=== PATIENT | female | born 1950 | race Hispanic/Latino ===

== ENCOUNTER → 2019-09-10 | Outpatient (CLI) | payer OTHER | END | disposition home or self-care (01) | LOC: OIH 13:53 | PROVIDERS: ATTEND Internal Medicine | DX: M06.4 Inflammatory polyarthropathy (principal) | CPT/HCPCS: 73120; 73620 ==

== ENCOUNTER 2025-08-05 06:24 | Observation (INO) | payer OTHER ==
[2025-08-03 10:50] LABS: IMMATURE GRANULOCYTE ABSOLUTE 0.02 K/uL (0-1); NUCLEATED RED BLOOD CELLS 0.0 % (0.0-0.19); PLATELET COUNT (AUTO) 209 K/uL (130-400); RED BLOOD CELL COUNT(AUTO) 3.65 MIL/uL (4.00-5.50); RED CELL DISTRIBUTION WIDTH 12.6 % (11.0-15.5); WHITE BLOOD COUNT (AUTO) 5.8 K/uL (4.8-10.8)
[2025-08-03 10:52] LABS: APPEARANCE,URINE CLEAR (CLEAR); GLUCOSE, URINE (UA) NEGATIVE (NEGATIVE); LEUKOCYTE ESTERASE ,URINE 75 Leu/uL (NEGATIVE); NITRATE,URINE NEGATIVE (NEGATIVE); OCCULT BLOOD,URINE NEGATIVE (NEGATIVE)
[2025-08-03 10:53] LABS: ADD UA MICROSCOPIC YES
[2025-08-03 10:54] LABS: SQUAMOUS EPITHELIAL CELL,UR RARE /HPF (0-2)
[2025-08-03 10:58] LABS: CREATININE 0.7 mg/dL (0.5-1.0); GLOMERULAR FILTR. RATE CALC 90.0 mL/min (>90); GLUCOSE,RANDOM 97.0 mg/dL (70-105); SODIUM SERUM 136.0 mmol/L (136-145); UREA NITROGEN, BLOOD 25.0 mg/dL (7-18)
[2025-08-03 10:59] LABS: INR 1.03 (0.85-1.15)
[2025-08-03 11:09] VITALS: BP 152/74; PULSE 66; RESP 13; TEMP 97.5
--- NOTE | 2025-08-03 11:10 | NUR ---
IS INITIAL DONE BY TOYA COLORADO
--- NOTE | 2025-08-04 10:12 | NUR ---
RE: LABS REPORTED UA/URINE CX TO DR RAMIREZ. NO NEW ORDERS RECEIVED.
[2025-08-05] VITALS (23 sets, daily range): BP systolic 150–197; BP diastolic 59–89; PULSE 65–76; RESP 15–18; TEMP 96.8–97.8; O2SAT 94
[~2025-08-05] VITALS: Ht 154.9 cm; Wt 83.5 kg
[~2025-08-05 06:24] MED LIST: ALBU1.252 IH; ATOR10TA69 PO; AZEL137S11 NS; BUDE10.2 IH; CHLO25TA3 PO; DOXA8TAB81 PO; ERGO500093 PO; LABE300T4 PO; LEVO75CA6 PO; LIFI1DRO5 OP; LOSA100T59 PO; MONT-39 PO; OMEP20CA12 PO; PRIM50TA23 PO
[2025-08-05] MEDS ORDERED: LIDOCAINE PF 100MG/5ML (2%) SYRINGE 5ML ONE (07:07)
[2025-08-05] MEDS ORDERED: MIDAZOLAM HCL 1 MG/ML 2ML VIAL ONE (07:09)
[2025-08-05] MEDS ORDERED: SUCCINYLCHOLINE CHLORIDE 20 MG/ML 10 ML VIAL ONE (07:17)
[2025-08-05] MEDS ORDERED: VANCOMYCIN 500MG+NS 100ML 100 ML IV ONE (07:27)
[2025-08-05] MEDS: SUGAMMADEX SODIUM 200 MG/2 ML VIAL IV ONE (07:40)
[2025-08-05] MEDS: TRANEXAMIC ACID 1000MG/10ML ONE ×2 (08:43→11:37)
[2025-08-05] MEDS: LACTATED RINGERS 1000ML 1,000 ML IV ONE (09:13)
--- NOTE | 2025-08-05 10:49 | OP ---
Operative Note: DATE OF PROCEDURE: 08/05/25 SURGEON: BLAKE RAMIREZ MD OUTPATIENT PSYCHIATRIST: [Jessica Yousif CFA] ANESTHESIA: [General anesthesia plus regional block] ANESTHESIOLOGIST/LOT WORKER: [Margaret Frye CRNA] PREOPERATIVE DIAGNOSIS: [Right knee osteoarthritis] POSTOPERATIVE DIAGNOSIS: [Right knee osteoarthritis] IMPLANTS: [BIOMET [employer]. Femur 62.5 right PS. Tibia 67 fixed cruciate. Tibial liner 16 x 63/67 PS. Patella 31X 8, asymmetric] PROCEDURE: [Right total knee arthroplasty] ESTIMATED BLOOD LOSS: [100 ML] INDICATIONS: [The patient is a 74-year-old female with a history of pain to the right knee secondary to severe arthritis. The patient was admitted to have a total knee arthroplasty after failing conservative treatment. The procedure was understood by the patient, risks, benefits and possible complications and agreed signed the consent form.] DESCRIPTION OF PROCEDURE: [After adequate general anesthesia was achieved and regional block obtained the right lower extremity was prepped and draped in the usual manner previous placement of the tourniquet in the proximal thigh. The extremity was then elevated and exsanguinated with an Esmarch bandage and the tourniquet inflated to 300 mmHg the Esmarch band been then removed. With the knee in flexion a longitudinal incision was then made in the anterior aspect through the skin followed by dissection of the subcutaneous tissue. A bone infusion needle was then inserted just medial to the tibial tuberosity and through this needle we injected into the bone a solution of normal saline 50 mL mixed with 500 mg of vancomycin. The needle was removed. A paramedian approach was then made with the Bovie cautery cutting through the quadriceps tendon, medial patellar retinaculum and patellar tendon retinaculum. The retropatellar tendon fat was then excised and the soft tissue elements of the tibia were eleva kandis subperiosteally and retractors were applied medially and laterally . The anterior and posterior cruciate ligaments were resected. With the use of a drill a starting hole was made in the distal femur entering the intramedullary canal and then after removal of the drill an intramedullary guide was inserted with a 5 degree valgus block that touched the distal femur and to this the distal femoral cutting guide was then applied anteriorly and was secured to the distal femur with the use of pins. The intramedullary guide was then removed and with the use of the oscillating saw we proceeded to resect the distal femur removing the fragments and the guide. The femoral sizer was then applied distally and drill holes were made removing the sizer and the 4-in-1 cutting block was then inserted and the anterior, posterior and chamfer cuts were made removing the fragments and the block. The PS cutting guide was then inserted and the intercondylar cut was made removing the fragment and the guide. The posterior cruciate ligament retractor was then inserted posterior to the tibia and this was brought forward proceeding then to apply the external tibial alignment guide and secured the proximal cutting guide to the tibia with the use of pins. With the use of the oscillating saw the proximal cut to the tibia tibia was made. The bone fragment was removed and the trial tibia plate was chosen. At this point the menisci were removed sharply and with the use of the curved osteotome the posterior osteophytes of the femur were removed. The trial components were then inserted at the femur and tibia with a trial tibial liner bringing the knee into extension noticing that the patient had a very stable knee in flexion, extension and with valgus and varus stress. The knee was main tained in extension and the patella was then addressed proceeding to measure its thickness and then with the use of the oscillating saw we removed eight mm from the articular surface and restored the height with application of a trial component after 3 peg holes were made. The patellofemoral ligament was removed and then the patellofemoral tracking was checked noticing to be tracking laterally and for this reason a lateral retinacular release was performed correcting the tracking back to normal. At this moment all the components were removed, the tibia after the metaphyseal defect was created and while cement was being mixed on the back table we proceeded to irrigate the joint with antibiotic solution and then cover the entry to the femoral canal with a bone plug. Once the cement was ready we proceeded to apply it first to the tibia surface inserting the final component and then to the femoral surface and inserted the final component removing the excess cement and then applying a trial liner bringing the knee into extension for compression. Then we proceeded to irrigate the patella surface and dried it applying then bone cement and the final patellar component was inserted and was secured with application of a clamp. The joint was irrigated with a warm diluted Betadine solution while the cement dried followed by irrigation with antibiotic solution. The trial liner was removed as well as the patellar clamp and we proceeded then to irrigate the posterior aspect of the joint to remove all the remaining debris and the final tibial liner was inserted and locked against the tibia. The range of motion was checked and noticed to be adequate with full extension and flexion, no laxity in valgus or varus stress and with adequate patellofemoral tracking. The patient had no anterior or posterior drawer. The tourniquet was then deflated and this was followed by hemostasis and the wound was then closed with approximation of the quadriceps tendon, patellar retinaculum and patellar tendon retinaculum with #1 Vicryl close stitches alternating with #1 Ethibond stitches, and closure of the subcutaneous tissue with 2-0 Monocryl inverted stitches and the skin was closed with 3-0 Monocryl subcuticularly. The wound was covered with a suction dressing followed by application of an Martínez bandage for compression and the drapes were then removed transferring the patient to the hospital bed and taken to recovery room for follow-up by anesthesia. There were no complications during the procedure.] BLAKE RAMIREZ MD Aug 05, 2025 10:49
[2025-08-05] MEDS ORDERED: PoTASSium chl 10% ELIXIR 20MEQ 20 MEQ/15 ML UDCUP PO PRN (11:00)
[2025-08-05] MEDS: 0.9%NACL 1000ML 1,000 ML IV SCH (11:00)
[2025-08-05] MEDS ORDERED: FERROUS FUMARATE 324 MG TABLET PO PRN (11:00)
--- NOTE | 2025-08-05 12:07 | NUR ---
PATIENT ARRIVED TO UNIT VIA BED Assessment completed as charted
[2025-08-05] MEDS ORDERED: ALBUTEROL 0.042% 1.25MG/3ML IH SCH (12:30)
[2025-08-05] MEDS ORDERED: AZELASTINE HCL 137 MCG NS SCH (12:30)
--- NOTE | 2025-08-05 18:30 | NUR ---
ORTHO COORDINATOR: TEACHING REGARDING DVT AND PNEUMONIA PREVENTION, PAIN EXPECTATIONS AND PAIN MANAGEMENT. PATIENT IN BED. FAMILY AT BEDSIDE. ICE PACK TO RIGHT KNEE. CARMEN SYSTEM REVIEWED. INSTRUCTED PATIENT SYSTEM SHOULD BE REMOVED 7 DAYS FROM THE DATE OF SURGERY BY HOME HEALTH. CARMEN SYSTEM FUNCTIONING, GREEN LIGHT FLASHING. B SCD SLEEVES IN PLACE AND FUNCTIONING. INCENTIVE SPIROMETER ON BEDSIDE TRAY. PATIENT VERBALIZED PROPER FREQUENCY OF USE FOR INCENTIVE SPIROMETER. PATIENT RETURN DEMONSTRATED FOOT FLEXION AND EXTENSION EXERCISES, RATIONALE FOR BOTH PROVIDED. PATIENT PAIN MANAGEMENT STRATEGY REVIEWED. PATIENT ENCOURAGED TO SET AN ALARM AND PERFORM SELF PAIN ASSESSMENTS EVERY FOUR HOURS AT THE MINIMUM. PATIENT INSTRUCTED PAIN MEDICATION MUST BE REQUESTED, NUMERIC PAIN SCALE REVIEWED. PATIENT INTENDS TO DISCHARGE HOME WITH HOME HEALTH PHYSICAL THERAPY. ENCOURAGED PATIENT TO CONTINUE PREMEDICATING PRIOR TO PHYSICAL THERAPY AND PERIODS OF HIGH ACTIVITY, TO CONTINUE USE OF INCENTIVE SPIROMETER UNTIL PRESURGERY ACTIVITY LEVEL REACHED, TO CONTINUE FOOT FLEXION AND EXTENSION EXERCISES, TO INCREASE AMBULATION AND MAINTAIN HYDRATION. SET EXPECTATIONS FOR PATIENT TO SHOWER TOMORROW, RATIONALE PROVIDED. PATIENT VERBALIZED UNDERSTANDING TO ALL INSTRUCTIONS. NO ADDITIONAL QUESTIONS AT THIS TIME.
[2025-08-05] MEDS: PoTASSium chloRIDE 20MEQ ER 20 MEQ ERTAB PO PRN (18:45)
[2025-08-05] MEDS: DOXAZOSIN MESYLATE 2 MG TABLET PO SCH (19:51)
[2025-08-05] MEDS: ASPIRIN 81 MG EC TAB PO SCH (19:51)
[2025-08-05] MEDS: PRIMIDONE 50 MG TAB PO SCH (21:00)
[2025-08-05] MEDS: SYMBICORT 160-4.5 MCG INHALER IH SCH (21:00)
[2025-08-06] VITALS (8 sets, daily range): BP systolic 106–143; BP diastolic 46–66; PULSE 67–74; RESP 16–18; TEMP 97.7–97.9; O2SAT 96–97
--- NOTE | 2025-08-06 04:35 | NUR ---
report received patient, patient awake, alert, ox3, no sob, no c/o pain at this time, ble scds in place, right knee with demetris dressing with negative pressure, teach patient plan of care, pain management and expected outcome, patient verbalizes understanding via teach back
[2025-08-06 04:55] LABS: NUCLEATED RED BLOOD CELLS 0.0 % (0.0-0.19); PLATELET COUNT (AUTO) 183.0 K/uL (130-400); RED BLOOD CELL COUNT(AUTO) 3.28 MIL/uL (4.00-5.50); RED CELL DISTRIBUTION WIDTH 12.3 % (11.0-15.5); WHITE BLOOD COUNT (AUTO) 7.3 K/uL (4.8-10.8)
[2025-08-06 05:17] LABS: CREATININE 0.7 mg/dL (0.5-1.0); GLOMERULAR FILTR. RATE CALC 90.0 mL/min (>90); GLUCOSE,RANDOM 101.0 mg/dL (70-105); SODIUM SERUM 135.0 mmol/L (136-145); UREA NITROGEN, BLOOD 17.0 mg/dL (7-18)
[2025-08-06] MEDS: CALCIUM CARB 500MG PO PRN (08:03)
[2025-08-06] MEDS: (Chlorthalidone 25 MG) PO SCH (08:14)
[2025-08-06] MEDS: LIFITEGRAST OP SCH (08:14)
--- NOTE | 2025-08-06 11:53 | PN ---
Postop day 1. Vital signs stable, afebrile. Laboratory reviewed. Adequate pain control. Did well with physical therapy and rehabilitation this morning. Awake, alert and oriented. In no respiratory distress. The dressing in the knees clean and dry with no signs of bleeding. There is mild edema. Calf is soft and nontender. Distal neurovascular intact. Assessment: Status post right total knee arthroplasty. Plan: Patient wishes to go home but discharge planning has been completed and likely will not happen until Friday. Continue with physical therapy and rehabilitation and pain control Vitals/Labs Vital Signs Date Time Temp Pulse Resp B/P (MAP) Pulse Ox O2 Delivery O2 Flow Rate FiO2 08/06/25 09:00 97.7 74 18 110/46 96 Room Air 21 08/06/25 08:00 0 Laboratory Tests 08/06/25 04:34 Medications Current Medications Cefazolin Sodium 2 gm STK-MED ONCE .ROUTE Last administered on 08/05/25at 08:39; Start 08/05/25 at 06:40; Stop 08/05/25 at 06:40; Status DC Lactated Ringer's 1,000 ml @ As Directed STK-MED ONCE IV Last administered on 08/05/25at 09:13; Start 08/05/25 at 06:40; Stop 08/05/25 at 06:40; Status DC Lidocaine HCl 100 mg STK-MED ONCE .ROUTE; Start 08/05/25 at 07:07; Stop 08/05/25 at 07:07; Status DC Ondansetron HCl 4 mg STK-MED ONCE .ROUTE; Start 08/05/25 at 07:07; Stop 08/05/25 at 07:07; Status DC Dexamethasone Sodium Phosphate 10 mg STK-MED ONCE .ROUTE; Start 08/05/25 at 07:07; Stop 08/05/25 at 07:08; Status DC Ketamine HCl 50 mg STK-MED ONCE .ROUTE; Start 08/05/25 at 07:08; Stop 08/05/25 at 07:08; Status DC Ephedrine Sulfate 50 mg STK-MED ONCE .ROUTE; Start 08/05/25 at 07:08; Stop 08/05/25 at 07:08; Status DC Propofol 200 mg STK-MED ONCE IV; Start 08/05/25 at 07:08; Stop 08/05/25 at 07:08; Status DC Phenylephrine HCl 10 mg STK-MED ONCE IV; Start 08/05/25 at 07:08; Stop 08/05/25 at 07:09; Status DC Midazolam HCl 2 mg STK-MED ONCE .ROUTE; Start 08/05/25 at 07:09; Stop 08/05/25 at 07:09; Status DC Fentanyl Citrate 100 mcg STK-MED ONCE .ROUTE; Start 08/05/25 at 07:09; Stop 08/05/25 at 07:09; Status DC Rocuronium Daphne 50 mg STK-MED ONCE .ROUTE; Start 08/05/25 at 07:14; Stop 08/05/25 at 07:15; Status DC Ropivacaine 150 mg STK-MED ONCE .ROUTE; Start 08/05/25 at 07:14; Stop 08/05/25 at 07:15; Status DC Succinylcholine Chloride 200 mg STK-MED ONCE .ROUTE; Start 08/05/25 at 07:17; Stop 08/05/25 at 07:17; Status DC Tranexamic Acid 1,000 mg STK-MED ONCE .ROUTE Last administered on 08/05/25at 08:43; Start 08/05/25 at 07:26; Stop 08/05/25 at 07:27; Status DC Cefazolin Sodium 1 gm STK-MED ONCE .ROUTE; Start 08/05/25 at 07:27; Stop 08/05/25 at 07:27; Status DC Vancomycin HCl 100 ml @ As Directed STK-MED ONCE IV; Start 08/05/25 at 07:27; Stop 08/05/25 at 07:27; Status DC Hydromorphone HCl 1 mg STK-MED ONCE .ROUTE; Start 08/05/25 at 07:40; Stop 08/05/25 at 07:41; Status DC Acetaminophen 100 ml @ As Directed STK-MED ONCE .ROUTE; Start 08/05/25 at 07:41; Stop 08/05/25 at 07:41; Status DC Cefazolin Sodium 3 gm STK-MED ONCE IRRIG; Start 08/05/25 at 00:00; Stop 08/05/25 at 00:01; Status Cancel Vancomycin HCl 500 mg STK-MED ONCE IJ; Start 08/05/25 at 00:00; Stop 08/05/25 at 00:01; Status Cancel Fentanyl Citrate 100 mcg STK-MED ONCE .ROUTE; Start 08/05/25 at 09:00; Stop 08/05/25 at 09:00; Status DC Cefazolin Sodium 3 gm STK-MED ONCE IRRIG Last administered on 08/05/25at 09:17; Start 08/05/25 at 09:17; Stop 08/05/25 at 09:26; Status DC Vancomycin HCl 500 mg STK-MED ONCE IJ Last administered on 08/05/25at 08:59; Start 08/05/25 at 08:59; Stop 08/05/25 at 09:26; Status DC Sodium Chloride 1,000 ml @ 100 mls/hr Q10H IV; Start 08/05/25 at 11:00; Stop 08/06/25 at 10:59; Status DC Polyethylene Glycol 17 gm DAILY PO Last administered on 08/06/25at 08:05; Start 08/06/25 at 09:00; Stop 09/05/25 at 08:59 Bisacodyl 10 mg DAILY PRN RC; Start 08/08/25 at 11:00; Stop 09/07/25 at 10:59 Ketorolac Tromethamine 15 mg Q6H PRN IV Last administered on 08/05/25at 12:37; Start 08/05/25 at 11:00; Stop 08/10/25 at 10:59 Ferrous Fumarate 324 mg DAILY PRN PO; Start 08/05/25 at 11:00; Stop 09/04/25 at 10:59 Ondansetron HCl 4 mg Q6H PRN IVP; Start 08/05/25 at 11:00; Stop 09/04/25 at 10:59 Calcium Carbonate 500 mg Q12H PRN PO Last administered on 08/06/25at 08:03; Start 08/05/25 at 11:00; Stop 09/04/25 at 10:59 Diphenhydramine HCl 25 mg Q6H PRN IVP; Start 08/05/25 at 11:00; Stop 09/04/25 at 10:59 Cefazolin Sodium 2 gm Q8H IVPB Last administered on 08/06/25at 00:04; Start 08/05/25 at 16:00; Stop 08/06/25 at 00:01; Status DC Potassium Chloride 100 ml @ 100 mls/hr AD PRN IV; Start 08/05/25 at 11:00; Stop 09/04/25 at 10:59 Potassium Chloride 20 meq AD PRN PO; Start 08/05/25 at 11:00; Stop 09/04/25 at 10:59 Potassium Chloride 20 meq AD PRN PO Last administered on 08/06/25at 08:04; Start 08/05/25 at 11:00; Stop 09/04/25 at 10:59 Oxycodone HCl 5 mg Q4H PRN PO Last administered on 08/05/25at 22:15; Start 08/05/25 at 11:00; Stop 08/12/25 at 10:59 Oxycodone HCl 10 mg Q4H PRN PO Last administered on 08/06/25at 08:06; Start 08/05/25 at 11:00; Stop 08/12/25 at 10:59 Tramadol HCl 50 mg Q6H PRN PO Last administered on 08/06/25at 10:10; Start 08/05/25 at 11:00; Stop 08/10/25 at 10:59 Acetaminophen 1,000 mg Q8H PO Last administered on 08/06/25at 11:06; Start 08/05/25 at 11:00; Stop 09/04/25 at 10:59 Aspirin 81 mg BID PO Last administered on 08/06/25at 08:02; Start 08/05/25 at 21:00; Stop 09/04/25 at 20:59 Tranexamic Acid 1,000 mg STK-MED ONCE .ROUTE Last administered on 08/05/25at 11:37; Start 08/05/25 at 11:22; Stop 08/05/25 at 11:22; Status DC Fentanyl Citrate 100 mcg STK-MED ONCE .ROUTE Last administered on 08/05/25at 11:39; Start 08/05/25 at 11:37; Stop 08/05/25 at 11:37; Status DC Albuterol Sulfate 1.25 mg AD IH; Start 08/05/25 at 12:30; Stop 08/05/25 at 12:52; Status DC Atorvastatin Calcium 10 mg PM PO Last administered on 08/05/25at 21:00; Start 08/05/25 at 21:00; Stop 09/04/25 at 20:59 Home Med SYMBICORT 160-4.5 MCG INHALER PM IH Last administered on 08/05/25at 21:00; Start 08/05/25 at 21:00; Stop 09/04/25 at 20:59 Losartan Potassium 100 mg NOON PO Last administered on 08/06/25at 11:06; Start 08/06/25 at 12:00; Stop 09/05/25 at 11:59 Montelukast Sodium 10 mg PM PO Last administered on 08/05/25at 21:00; Start 08/05/25 at 21:00; Stop 09/04/25 at 20:59 Primidone 50 mg PM PO Last administered on 08/05/25at 21:00; Start 08/05/25 at 21:00; Stop 09/04/25 at 20:59 Miscellaneous Medication 137 mcg AD NS; Start 08/05/25 at 12:30; Stop 08/05/25 at 12:52; Status DC Home Med (Chlorthalidone 25 MG) AM PO; Start 08/06/25 at 09:00; Stop 09/05/25 at 08:59 Doxazosin Mesylate 8 mg BID PO Last administered on 08/06/25at 08:05; Start 08/05/25 at 21:00; Stop 09/04/25 at 20:59 Labetalol HCl 200 mg BID PO Last administered on 08/06/25at 08:03; Start 08/05/25 at 21:00; Stop 09/04/25 at 20:59 Levothyroxine Sodium 75 mcg SYN PO Last administered on 08/06/25at 06:16; Start 08/06/25 at 06:30; Stop 09/05/25 at 06:29 Home Med (Lifitegrast (Xiidra) 1 EACH) AM OP Last administered on 08/06/25at 08:14; Start 08/06/25 at 09:00; Stop 09/05/25 at 08:59 Pantoprazole Sodium 40 mg DAILY PO Last administered on 08/06/25at 08:05; Start 08/06/25 at 09:00; Stop 09/05/25 at 08:59 Labetalol HCl 100 mg BID PO Last administered on 08/06/25at 08:03; Start 08/05/25 at 21:00; Stop 09/04/25 at 20:59 BLAKE RAMIREZ MD Aug 06, 2025 11:53
--- NOTE | 2025-08-06 16:20 | NUR ---
[facility] CM MET WITH PT AND SISTER IN ROOM, INITIAL ASSESSMENT DONE. PATIENT IS INDEPENDENT PRIOR TO SURGERY, LIVES AT HOME WITH HER . AT HOME PATIENT VERBALIZED SHE HAS A ROLLATOR WALKER, CPAP, NEBULIZER MACHINE, BPM. DENIES ANY OTHER EQUIPMENT/SERVICES. FEELS SAFE TO GO BACK HOME, STILL DRIVE. PT VERBALIZED SISTER AND DAUGHTER ABLE TO ASSIST WITH TRANSPORTATION AND NEEDS NECESSARY. DISCUSSED MD RECOMMENDATIONS FOR HOME W/HH, PT WILL ALSO NEED A STANDARD WALKER. PT VERBALIZED SHE WOULD LIKE TO ALSO HAVE A BEDSIDE COMMODE IF POSSIBLE. CM INFORMED PT THAT THIS TIME CANNOT GUARANTEE THAT BEDSIDE COMMODE WILL BE APPROVED BY INSURANCE, PT MIGHT HAVE TO PAY PRIVATELY, PT VERBALIZED UNDERSTANDING AND AGREEABLE. CONSENT SIGNED SMITA FOR [facility] AND [facility]. [facility] HOME W/HH AND DME ONCE APPROVED. CM TO CONTINUE TO FOLLOW UP. Addendum: 08/06/25 at 1623 by RACHEL COE LVN CM Amended: Links added.
--- NOTE | 2025-08-06 18:36 | NUR ---
POD #1 SHOWER REFUSAL Patient refused shower today. 3 attempts were made by [employer] and 1 by nurse. Patient stated that she did not want to shower and that she would shower tomorrow. Refusal for ordered treatment form signed and in medical chart.
--- NOTE | 2025-08-06 20:15 | NUR ---
PATIENT IV TENDER AND LEAKING, ATTEMPTED X2 TO INSERT NEW IV AND WAS UNSUCCESSFUL. CHARGE NURSE HANSA ATTEMPTED ONCE AND FAILED, PATIENT DID NOT WANT US TO TRY AGAIN. SHE STATED THAT SHE WANTED SOMEONE ELSE TO TRY AGAIN LATER.
[2025-08-07] VITALS (8 sets, daily range): BP systolic 111–142; BP diastolic 45–67; PULSE 67–77; RESP 18–19; TEMP 97.5–98.7; O2SAT 95–97
--- NOTE | 2025-08-07 11:45 | PN ---
Postop day 2. Vital signs stable, afebrile. Adequate pain control, improved. Did well with physical therapy and rehabilitation this morning. Awake, alert and oriented. In no respiratory distress. The dressing in the knees clean and dry with no signs of bleeding. Distal neurovascular intact. Assessment: Status post right total knee arthroplasty. Plan: Continue with physical therapy and rehabilitation and pain control Vitals/Labs Vital Signs Date Time Temp Pulse Resp B/P (MAP) Pulse Ox O2 Delivery O2 Flow Rate FiO2 08/07/25 08:10 97.5 72 18 139/62 95 Room Air 08/07/25 08:00 0 21 Medications Current Medications Cefazolin Sodium 2 gm STK-MED ONCE .ROUTE Last administered on 08/05/25at 08:39; Start 08/05/25 at 06:40; Stop 08/05/25 at 06:40; Status DC Lactated Ringer's 1,000 ml @ As Directed STK-MED ONCE IV Last administered on 08/05/25at 09:13; Start 08/05/25 at 06:40; Stop 08/05/25 at 06:40; Status DC Lidocaine HCl 100 mg STK-MED ONCE .ROUTE; Start 08/05/25 at 07:07; Stop 08/05/25 at 07:07; Status DC Ondansetron HCl 4 mg STK-MED ONCE .ROUTE; Start 08/05/25 at 07:07; Stop 08/05/25 at 07:07; Status DC Dexamethasone Sodium Phosphate 10 mg STK-MED ONCE .ROUTE; Start 08/05/25 at 07:07; Stop 08/05/25 at 07:08; Status DC Ketamine HCl 50 mg STK-MED ONCE .ROUTE; Start 08/05/25 at 07:08; Stop 08/05/25 at 07:08; Status DC Ephedrine Sulfate 50 mg STK-MED ONCE .ROUTE; Start 08/05/25 at 07:08; Stop 08/05/25 at 07:08; Status DC Propofol 200 mg STK-MED ONCE IV; Start 08/05/25 at 07:08; Stop 08/05/25 at 07:08; Status DC Phenylephrine HCl 10 mg STK-MED ONCE IV; Start 08/05/25 at 07:08; Stop 08/05/25 at 07:09; Status DC Midazolam HCl 2 mg STK-MED ONCE .ROUTE; Start 08/05/25 at 07:09; Stop 08/05/25 at 07:09; Status DC Fentanyl Citrate 100 mcg STK-MED ONCE .ROUTE; Start 08/05/25 at 07:09; Stop 08/05/25 at 07:09; Status DC Rocuronium [place] 50 mg STK-MED ONCE .ROUTE; Start 08/05/25 at 07:14; Stop 08/05/25 at 07:15; Status DC Ropivacaine 150 mg STK-MED ONCE .ROUTE; Start 08/05/25 at 07:14; Stop 08/05/25 at 07:15; Status DC Succinylcholine Chloride 200 mg STK-MED ONCE .ROUTE; Start 08/05/25 at 07:17; Stop 08/05/25 at 07:17; Status DC Tranexamic Acid 1,000 mg STK-MED ONCE .ROUTE Last administered on 08/05/25at 08:43; Start 08/05/25 at 07:26; Stop 08/05/25 at 07:27; Status DC Cefazolin Sodium 1 gm STK-MED ONCE .ROUTE; Start 08/05/25 at 07:27; Stop 08/05/25 at 07:27; Status DC Vancomycin HCl 100 ml @ As Directed STK-MED ONCE IV; Start 08/05/25 at 07:27; Stop 08/05/25 at 07:27; Status DC Hydromorphone HCl 1 mg STK-MED ONCE .ROUTE; Start 08/05/25 at 07:40; Stop 08/05/25 at 07:41; Status DC Acetaminophen 100 ml @ As Directed STK-MED ONCE .ROUTE; Start 08/05/25 at 07:41; Stop 08/05/25 at 07:41; Status DC Cefazolin Sodium 3 gm STK-MED ONCE IRRIG; Start 08/05/25 at 00:00; Stop 08/05/25 at 00:01; Status Cancel Vancomycin HCl 500 mg STK-MED ONCE IJ; Start 08/05/25 at 00:00; Stop 08/05/25 at 00:01; Status Cancel Fentanyl Citrate 100 mcg STK-MED ONCE .ROUTE; Start 08/05/25 at 09:00; Stop 08/05/25 at 09:00; Status DC Cefazolin Sodium 3 gm STK-MED ONCE IRRIG Last administered on 08/05/25at 09:17; Start 08/05/25 at 09:17; Stop 08/05/25 at 09:26; Status DC Vancomycin HCl 500 mg STK-MED ONCE IJ Last administered on 08/05/25at 08:59; Start 08/05/25 at 08:59; Stop 08/05/25 at 09:26; Status DC Sodium Chloride 1,000 ml @ 100 mls/hr Q10H IV; Start 08/05/25 at 11:00; Stop 08/06/25 at 10:59; Status DC Polyethylene Glycol 17 gm DAILY PO Last administered on 08/07/25at 08:04; Start 08/06/25 at 09:00; Stop 09/05/25 at 08:59 Bisacodyl 10 mg DAILY PRN RC; Start 08/08/25 at 11:00; Stop 09/07/25 at 10:59 Ketorolac Tromethamine 15 mg Q6H PRN IV Last administered on 08/07/25at 06:01; Start 08/05/25 at 11:00; Stop 08/10/25 at 10:59 Ferrous Fumarate 324 mg DAILY PRN PO; Start 08/05/25 at 11:00; Stop 09/04/25 at 10:59 Ondansetron HCl 4 mg Q6H PRN IVP; Start 08/05/25 at 11:00; Stop 09/04/25 at 10:59 Calcium Carbonate 500 mg Q12H PRN PO Last administered on 08/07/25at 07:12; Start 08/05/25 at 11:00; Stop 09/04/25 at 10:59 Diphenhydramine HCl 25 mg Q6H PRN IVP; Start 08/05/25 at 11:00; Stop 09/04/25 at 10:59 Cefazolin Sodium 2 gm Q8H IVPB Last administered on 08/06/25at 00:04; Start 08/05/25 at 16:00; Stop 08/06/25 at 00:01; Status DC Potassium Chloride 100 ml @ 100 mls/hr AD PRN IV; Start 08/05/25 at 11:00; Stop 09/04/25 at 10:59 Potassium Chloride 20 meq AD PRN PO; Start 08/05/25 at 11:00; Stop 09/04/25 at 10:59 Potassium Chloride 20 meq AD PRN PO Last administered on 08/07/25 11:34; Start 08/05/25 at 11:00; Stop 09/04/25 at 10:59 Oxycodone HCl 5 mg Q4H PRN PO Last administered on 08/07/25 11:34; Start 08/05/25 at 11:00; Stop 08/12/25 at 10:59 Oxycodone HCl 10 mg Q4H PRN PO Last administered on 08/07/25at 08:05; Start 08/05/25 at 11:00; Stop 08/12/25 at 10:59 Tramadol HCl 50 mg Q6H PRN PO Last administered on 08/06/25at 10:10; Start 08/05/25 at 11:00; Stop 08/10/25 at 10:59 Acetaminophen 1,000 mg Q8H PO Last administered on 08/07/25 11:29; Start 08/05/25 at 11:00; Stop 09/04/25 at 10:59 Aspirin 81 mg BID PO Last administered on 08/07/25 08:06; Start 08/05/25 at 21:00; Stop 09/04/25 at 20:59 Tranexamic Acid 1,000 mg STK-MED ONCE .ROUTE Last administered on 08/05/25 11:37; Start 08/05/25 at 11:22; Stop 08/05/25 at 11:22; Status DC Fentanyl Citrate 100 mcg STK-MED ONCE .ROUTE Last administered on 08/05/25 11:39; Start 08/05/25 at 11:37; Stop 08/05/25 at 11:37; Status DC Albuterol Sulfate 1.25 mg AD IH; Start 08/05/25 at 12:30; Stop 08/05/25 at 12:52; Status DC Atorvastatin Calcium 10 mg PM PO Last administered on 08/06/25at 20:11; Start 08/05/25 at 21:00; Stop 09/04/25 at 20:59 Home Med SYMBICORT 160-4.5 MCG INHALER PM IH Last administered on 08/06/25 20:12; Start 08/05/25 at 21:00; Stop 09/04/25 at 20:59 Losartan Potassium 100 mg NOON PO Last administered on 08/07/25at 11:28; Start 08/06/25 at 12:00; Stop 09/05/25 at 11:59 Montelukast Sodium 10 mg PM PO Last administered on 08/06/25at 20:11; Start 08/05/25 at 21:00; Stop 09/04/25 at 20:59 Primidone 50 mg PM PO Last administered on 08/06/25at 20:11; Start 08/05/25 at 21:00; Stop 09/04/25 at 20:59 Miscellaneous Medication 137 mcg AD NS; Start 08/05/25 at 12:30; Stop 08/05/25 at 12:52; Status DC Home Med (Chlorthalidone 25 MG) AM PO Last administered on 08/07/25at 08:04; Start 08/06/25 at 09:00; Stop 09/05/25 at 08:59 Doxazosin Mesylate 8 mg BID PO Last administered on 08/07/25at 08:05; Start 08/05/25 at 21:00; Stop 09/04/25 at 20:59 Labetalol HCl 200 mg BID PO Last administered on 08/07/25at 08:07; Start 08/05/25 at 21:00; Stop 09/04/25 at 20:59 Levothyroxine Sodium 75 mcg SYN PO Last administered on 08/07/25at 06:01; Start 08/06/25 at 06:30; Stop 09/05/25 at 06:29 Home Med (Lifitegrast (Xiidra) 1 EACH) AM OP Last administered on 08/07/25at 08:04; Start 08/06/25 at 09:00; Stop 09/05/25 at 08:59 Pantoprazole Sodium 40 mg DAILY PO Last administered on 08/07/25at 08:06; Start 08/06/25 at 09:00; Stop 09/05/25 at 08:59 Labetalol HCl 100 mg BID PO Last administered on 08/07/25at 08:06; Start 08/05/25 at 21:00; Stop 09/04/25 at 20:59 BLAKE RAMIERZ MD Aug 07, 2025 11:45
[2025-08-08 00:43] VITALS: BP 137/69; PULSE 74; RESP 18; TEMP 98.5
--- NOTE | 2025-08-08 03:30 | NUR ---
AMBULATION: PT ASSISTED TO THE REST ROOM WITH THE USE OF A WALKER. PT ASSISTED BACK TO BED. PT WAS TOLERATED WALK WELL. BILATERAL SCDs IN PLACE. S/R UP X 3, BED ALARM IN PLACE. ENCOURAGED TO USE CALL LIGHT FOR ASSISTANCE, CALL HOLLIDAY WITHIN REACH.
[2025-08-08 05:54] VITALS: BP 142/59; PULSE 87; RESP 18; TEMP 98.6
[2025-08-08 08:00] VITALS: BP 134/59; PULSE 76; RESP 18; TEMP 97.8
--- NOTE | 2025-08-08 09:00 | NUR ---
PATIENT ASKED IF SHE TAKES 300 MG OF LABETOLOL AT HOME PRIOR TO ADMINISTRATION. SHE, AND DAUGHTER AT BEDSIDE, CONFIRMED THAT SHE DOES TAKE LABETOLOL 300 MG PO AT HOME
--- NOTE | 2025-08-08 09:02 | DS ---
DISCHARGE SUMMARY [Date of admission: 08/05/25 Date of discharge:08/08/25 Final diagnosis: Right Knee osteoarthritis Surgical procedures: Right total Knee arthroplasty on 08/05/25 Summary of History and Physical: The patient is a 74 year-old female with history of severe arthrosis to the Right knee that has been present for several years and has been treated conservatively with no longer adequate response to treatment. The patient is being admitted for total knee arthroplasty. Previous medical history: HTN, obesity, gastritis, hyperlipidemia, asthma, sleep apnea Previous surgical history: L knee scope, bilateral buninectomy, catacracts, L breast biopsy, partila hysterectomy Family history: Heart disease, HTN Social history: Negative for use of tobacco or alcohol. Allergies: NKDA. Intolerant to azythromycin Review of system: Negative on admission Hospital course: The patient was admitted and taken to the operating room for a total knee arthroplasty, procedure that went uneventful. Postoperatively the patient remained hemodynamically stable and afebrile. The patient received antibiotic and anticoagulation prophylaxis as per protocol. The patient was evaluated by physical therapy and started rehabilitation treatment with ambulation with the use of walker, weightbearing as tolerated, range of motion exercises and bed transfers. The patient was also evaluated by case management and arrangements were made for discharge. The patient tolerated diet well. On postop day #2 all the arrangements were completed. The dressing was changed and the wound was noted to be stable and the patient was dismissed. Condition on discharge: Good Disposition: The patient will be dismissed home with home health. Follow-up will be done at the office in 3 weeks. The patient is to continue with physical therapy and rehabilitation at home and be ambulatory with the use of a walker, weightbearing as tolerated. Continue taking pain medication as instructed as well as anticoagulation prophylaxis. Continue with home medications also as instructed and continue with pre admission diet.] BLAKE RAMIREZ MD Aug 08, 2025 09:02
[2025-08-08 12:00] VITALS: BP 123/61; PULSE 70; RESP 17; TEMP 97.6
[2025-08-08] MEDS ORDERED: AEC81 PO (13:31)
[2025-08-08] MEDS ORDERED: HYDR-4060 PO (13:31)
[2025-08-08 13:59] VITALS: O2SAT 97
--- NOTE | 2025-08-08 14:04 | NUR ---
DISCHARGE DISCHARGE ORDERS OBTAINED FOR PATIENT TO BE DISCHARGED HOME WITH HOME HEALTH. PATIENT ACCEPTED WITH [facility]. DISCHARGE INSTRUCTIONS AND DOCUMENTATION GIVEN TO PATIENT AND DAUGHTER AT BEDSIDE. BOTH VOICED UNDERSTANDING. IV DISCONTINUED BY JJ WHIPPLE. CATHETER INTACT, NO S/S OF INFECTION NOTED TO AREA. PATIENT TOLERATED WELL. BANDS REMOVED PRIOR TO DISCHARGE. PENDING TRANSPORTATION.
--- NOTE | 2025-08-08 14:58 | NUR ---
HOME MEDICATION RETURN RETURNED PATIENT SYMBICORT, CLORTALIDONE AND XIIDRA AT TIME OF DISCHARGE
== END 2025-08-08 15:30 | disposition home health service (06) ==
LOC: DAH 06:24 → UNDOADMOB 06:25 → 4BH 06:25 → DAHIP 06:25 → 4BH 12:10 → DAHIP 12:10 → OBSVTOIN 08-06 09:59 → INTOOBSV 08-06 09:59
PROVIDERS: ADMIT Orthopaedic Surgery; ATTEND Orthopaedic Surgery
DX: M17.11 Unilateral primary osteoarthritis, right knee (principal); I10 Essential (primary) hypertension; E78.5 Hyperlipidemia, unspecified; J45.909 Unspecified asthma, uncomplicated; E03.9 Hypothyroidism, unspecified; K29.70 Gastritis, unspecified, without bleeding; G47.30 Sleep apnea, unspecified; E66.9 Obesity, unspecified; Z90.710 Acquired absence of both cervix and uterus; Z68.34 Body mass index [BMI] 34.0-34.9, adult; Z79.899 Other long term (current) drug therapy; Z98.890 Other specified postprocedural states
CPT/HCPCS: 80048 ×2; 85025; 85610; 87086; 81001; 36415 ×2; 87641; 27447; 96365; 96375; 64447; 88311; 88304; 97161; 97116 ×6; 97530 ×8; 96376 ×3; 96366; 85027; A4223 ×2; A4663; J7120 ×2; J3010 ×3; J0690 ×5; J1171; J3490 ×3; J1100; J0330; J2003; J2250; J2704; J2405; J2795; J1885 ×4; J2371; J3373 ×2; A9272; A4649 ×3; A4930; C1713; C1776; A4215; A4213; A4222; A4221; A4216; G0378 ×2